=== PATIENT | male | born 1950 | race Caucasian/White ===

== ENCOUNTER 2017-01-07 01:48 | Observation (INO) | payer MEDICARE, OTHER ==
[~2017-01-07] VITALS: Ht 180.3 cm; Wt 124.5 kg
[2017-01-07] VITALS (16 sets, daily range): BP systolic 93–166; BP diastolic 58–93; PULSE 90–112; RESP 16–24; TEMP 99.1–100.3; O2SAT 93–100
[2017-01-07] MEDS ORDERED: SODIUM CHLORID 0.9% 500 ML INJ 500 ML IV ONE (02:15)
[2017-01-07] MEDS ORDERED: ASPIRIN 81 MG CHEW TAB PO ONE (02:15)
[2017-01-07] MEDS ORDERED: SODIUM CHLORIDE 0.9% FLUSH 5 ML FLUSH IVF PRN ×2 (02:15→04:45)
[2017-01-07] MEDS: NITROGLYCERIN 0.4 MG SL 25 TABS/BTL SL SCH ×3 (02:20→02:34)
[2017-01-07] MEDS ORDERED: VITA500T4 PO (02:23)
[2017-01-07] MEDS ORDERED: AMLO5TAB2 PO (02:23)
[2017-01-07] MEDS ORDERED: SERT-129 PO (02:23)
[2017-01-07] MEDS ORDERED: METO-426 PO (02:23)
[2017-01-07] MEDS ORDERED: ASPI81CH CHEW (02:23)
[2017-01-07] MEDS ORDERED: ATOR40TA16 PO (02:23)
[2017-01-07 02:33] LABS: AUTOMATED NEUTROPHIL # 3.6 TH/MM3 (1.8-7.7); BASOPHIL # 0.1 TH/MM3 (0-0.2); BASOPHIL % 1.6 % (0.0-2.0); EOSINOPHIL # 0.2 TH/MM3 (0-0.4); HEMATOCRIT 42.7 % (39.0-51.0); HEMO FLAGS DIFF FINAL; LYMPHOCYTE # 0.9 TH/MM3 (1.0-4.8); MEAN CELL VOLUME 87.7 FL (80.0-100.0); MEAN CORPUSCULAR HEMOGLOBIN 29.4 PG (27.0-34.0); MEAN CORPUSCULAR HGB CONC 33.5 % (32.0-36.0); MONO % 7.5 % (0.0-8.0); NEUT % 70.9 % (16.0-70.0); PLATELET COUNT 116 TH/MM3 (150-450); RED BLOOD COUNT 4.87 MIL/MM3 (4.50-5.90); RED CELL DISTRIBUTION WIDTH 12.6 % (11.6-17.2); WHITE BLOOD COUNT 5.2 TH/MM3 (4.0-11.0)
[2017-01-07 02:43] LABS: CHLORIDE 104 MEQ/L (98-107); POTASSIUM 3.6 MEQ/L (3.5-5.1); SODIUM (NA) 142 MEQ/L (136-145)
[2017-01-07 02:47] LABS: ANION GAP 7 MEQ/L (5-15); BLOOD UREA NITROGEN 16 MG/DL (7-18)
[2017-01-07 02:50] LABS: ALT (GPT) 30 U/L (12-78); AST (GOT) 16 U/L (15-37); GLOMERULAR FILTRATION RATE 67 ML/MIN (>89)
[2017-01-07 02:53] LABS: ALKALINE PHOSPHATASE 85 U/L (45-117)
--- NOTE | 2017-01-07 02:58 | RADHPO ---
EXAM DATE/TIME: 01/07/2017 02:32 [facility] COMPARISON: No previous studies available for comparison. INDICATIONS : Chest pain for 2 days MEDICAL HISTORY : None. SURGICAL HISTORY : None. ENCOUNTER: Initial ACUITY: 1 day PAIN SCORE: 7/10 LOCATION: Center of chest FINDINGS: Single AP view of the chest. The lungs are clear. Cardiomediastinal silhouette within normal limits. No evidence of pleural effusion or pneumothorax. CONCLUSION: No acute cardiopulmonary disease identified. Ankit Feliciano MD on January 07, 2017 at 2:55 Board Certified Radiologist. This report was verified electronically.
[2017-01-07 03:04] LABS: CREATINE KINASE 41 U/L (39-308)
--- NOTE | 2017-01-07 03:24 | PD ---
HPI Chief Complaint: Chest Pain Time Seen by Provider: 02:07 Travel History International Travel<30 days: No Contact w/Intl Traveler<30days: No Traveled to known affect area: No History of Present Illness HPI Patient is a 66-year-old male who presents to emergency room for evaluation of chest pain. Patient reports that he has history of hypertension and hyperlipidemia and history of V. tach in the past. Reports that since yesterday at 9 AM, he began to have chest pain. Patient reports that he feels like there is a bubble sensation to his left chest. Reports that chest pain feels like a "pressure to the chest" and reports that he does have associated shortness of breath with his chest pain. Patient reports that taking deep breath exacerbates his chest pain. Reports no nausea or vomiting with symptoms. Denies diaphoresis with symptoms. Reports that he had similar symptoms in the past when he was diagnosed with V. tach many years ago. Patient reports that he has not seen a compensator worker in the past 10 years. Patient reports that he does have a compensator worker in [place], he does live in [place] during the wintertime and goes back to [place] during the summertime to live. [facility] Past Medical History Atrial Fibrillation: Yes Anxiety: Yes Heart Rhythm Problems: Yes High Cholesterol: Yes Chest Pain: Yes Hypertension: Yes Kidney Stones: Yes ?: Not Social History Alcohol Use: Yes Tobacco Use: No Substance Use: No Allergies-Medications (Allergen,Severity, Reaction): Coded Allergies: No Known Allergies (Unverified , 01/07/17) Reported Meds & Prescriptions Reported Meds & Active Scripts Active Reported Vitamin B-12 (Cyanocobalamin) 500 Mcg Tab 500 Mcg PO DAILY Aspirin 81 Mg Chew 81 Mg CHEW DAILY Metoprolol Tartrate 75 Mg Tab 75 Mg PO BID Amlodipine (Amlodipine Besylate) 5 Mg Tab 5 Mg PO DAILY Atorvastatin (Atorvastatin Calcium) 40 Mg Tab 40 Mg PO HS Sertraline (Sertraline HCl) 100 Mg Tab 100 Mg PO DAILY Review of Systems General / Constitutional: No: Fever Eyes: No: Visual changes HENT: No: Headaches Cardiovascular: Positive: Chest Pain or Discomfort, Palpitations, Irregular Rhythm Respiratory: No: Shortness of Breath Gastrointestinal: No: Abdominal Pain Genitourinary: No: Dysuria Musculoskeletal: No: Pain Skin: No Rash Neurologic: No: Weakness Psychiatric: No: Depression Endocrine: No: Polydipsia Hematologic/Lymphatic: No: Easy Bruising Physical Exam Narrative GENERAL: Mild distress SKIN: Warm and dry. HEAD: Atraumatic. Normocephalic. EYES: Pupils equal and round. No scleral icterus. No injection or drainage. ENT: No nasal bleeding or discharge. Mucous membranes pink and moist. NECK: Trachea midline. No JVD. CARDIOVASCULAR: Irregular iegular rate and rhythm. No murmur appreciated. RESPIRATORY: No accessory muscle use. Clear to auscultation. Breath sounds equal bilaterally. GASTROINTESTINAL: Abdomen soft, non-tender, nondistended. Hepatic and splenic margins not palpable. MUSCULOSKELETAL: No obvious deformities. No clubbing. No cyanosis. No edema. NEUROLOGICAL: Awake and alert. No obvious cranial nerve deficits. Motor grossly within normal limits. Normal speech. PSYCHIATRIC: Appropriate mood and affect; insight and judgment normal. Data Data Last Documented VS Vital Signs Date Time Temp Pulse Resp B/P Pulse Ox O2 Delivery O2 Flow Rate FiO2 01/07/17 03:15 97 16 163/77 99 Room Air Orders B-Type Natriuretic Peptide (01/07/17 02:14) Ckmb (Isoenzyme) Profile (01/07/17 02:14) Complete Blood Count With Diff (01/07/17 02:14) Comprehensive Metabolic Panel (01/07/17 02:14) D-Dimer (01/07/17 02:14) Prothrombin Time / Inr (Pt) (01/07/17 02:14) Act Partial Throm Time (Ptt) (01/07/17 02:14) Troponin I (01/07/17 02:14) Lipase (01/07/17 02:14) Chest, Single Ap (01/07/17 02:14) Ecg Monitoring (01/07/17 02:14) Iv Access Insert/Monitor (01/07/17 02:14) Oximetry (01/07/17 02:14) Aspirin Chew (Aspirin Chew) (01/07/17 02:15) Sodium Chloride 0.9% Flush (Ns Flush) (01/07/17 02:15) Nitroglycerin Sl (Nitrostat Sl) (01/07/17 02:15) Sodium Chlorid 0.9% 500 Ml Inj (Ns 500 M (01/07/17 02:15) Labs Laboratory Tests Test 01/07/17 01/07/17 02:20 03:10 White Blood Count 5.2 TH/MM3 Red Blood Count 4.87 MIL/MM3 Hemoglobin 14.3 GM/DL Hematocrit 42.7 % Mean Corpuscular Volume 87.7 FL Mean Corpuscular Hemoglobin 29.4 PG Mean Corpuscular Hemoglobin 33.5 % Concent Red Cell Distribution Width 12.6 % Platelet Count 116 TH/MM3 Mean Platelet Volume 8.5 FL Neutrophils (%) (Auto) 70.9 % Lymphocytes (%) (Auto) 17.0 % Monocytes (%) (Auto) 7.5 % Eosinophils (%) (Auto) 3.0 % Basophils (%) (Auto) 1.6 % Neutrophils # (Auto) 3.6 TH/MM3 Lymphocytes # (Auto) 0.9 TH/MM3 Monocytes # (Auto) 0.4 TH/MM3 Eosinophils # (Auto) 0.2 TH/MM3 Basophils # (Auto) 0.1 TH/MM3 CBC Comment DIFF FINAL Differential Comment Sodium Level 142 MEQ/L Potassium Level 3.6 MEQ/L Chloride Level 104 MEQ/L Carbon Dioxide Level 31.0 MEQ/L Anion Gap 7 MEQ/L Blood Urea Nitrogen 16 MG/DL Creatinine 1.10 MG/DL Estimat Glomerular Filtration 67 ML/MIN Rate Random Glucose 138 MG/DL Calcium Level 8.4 MG/DL Total Bilirubin 2.0 MG/DL Aspartate Amino Transf 16 U/L (AST/SGOT) Alanine Aminotransferase 30 U/L (ALT/SGPT) Alkaline Phosphatase 85 U/L Total Creatine Kinase 41 U/L Troponin I LESS THAN 0.02 NG/ML B-Type Natriuretic Peptide 191 PG/ML Total Protein 7.3 GM/DL Albumin 3.9 GM/DL Lipase 97 U/L Prothrombin Time 11.8 SEC Prothromb Time International 1.1 RATIO Ratio Activated Partial 25.9 SEC Thromboplast Time D-Dimer Quantitative (PE/DVT) 0.41 MG/L [facility] Medical Decision Making Medical Screen Exam Complete: Yes Emergency Medical Condition: Yes Interpretation(s) EKG at 0156: A. fib with RVR at 105 beats minute Vital Signs Date Time Temp Pulse Resp B/P Pulse Ox O2 Delivery O2 Flow Rate FiO2 01/07/17 03:15 97 16 163/77 99 Room Air 01/07/17 02:55 139/65 01/07/17 02:50 116/64 01/07/17 02:45 93/58 01/07/17 02:40 111/61 01/07/17 02:35 160/83 01/07/17 02:30 149/92 01/07/17 02:00 16 99 Room Air 01/07/17 01:50 112 16 142/83 100 Differential Diagnosis New onset A. fib, arrhythmia, ACS, electrolyte abnormality Narrative Course Patient is a 66-year-old male who presents to emergency room with complaints of chest pain since yesterday at 9 AM. Patient reports that chest pain is located his left breast, reports that pain feels a Pressure to his chest with associated shortness of breath. Patient reports that he has had history of hypertension or hyperlipidemia, he last saw a compensator worker about 10 years ago in [place]. Patient reports that chest pain has been continuous since yesterday, patient reports that he is here for evaluation as symptoms are not getting any better. It appears the patient's rhythm is A. fib, patient reports that he thinks that he was told that he had irregular irregular heart rate in the past. Patient was placed on a conservator artifacts upon arrival to the emergency room, labs as well as cardiac enzymes and x-ray ordered. Patient was given 2 SL nitros which completely resolved his chest pain. Diagnosis Primary Impression: Chest pain Qualified Code: R07.9 - Chest pain, unspecified type Additional Impression: Afib Qualified Code: I48.91 - Atrial fibrillation, unspecified type Admitting Information Admitting Physician Requests: Mehnaz Bhardwaj DO Jan 07, 2017 03:24
[2017-01-07 03:40] LABS: APTT (PATIENT) 25.9 SEC (24.3-30.1); INTERNATIONAL NORMALIZED RATIO 1.1 RATIO; PROTHROMBIN TIME - PATIENT 11.8 SEC (9.8-11.6)
[2017-01-07] MEDS ORDERED: ENOXAPARIN SODIUM 150 MG/ML SYRINGE SQ ONE (04:45)
[2017-01-07 06:24] LABS: CREATINE KINASE 37 U/L (39-308)
[2017-01-07] MEDS ORDERED: MORPHINE SULFATE 4 MG/ML INJ IV PRN (07:30)
[2017-01-07] MEDS ORDERED: NITROGLYCERIN 0.4 MG SL 25 TABS/BTL SL PRN (07:30)
[2017-01-07] MEDS ORDERED: ACETAMINOPHEN 325 MG TAB PO PRN (07:30)
[2017-01-07] MEDS ORDERED: ONDANSETRON HCL 4 MG/2 ML VIAL IV PRN (07:30)
[2017-01-07] MEDS: NITROGLYCERIN 2% OINT 1 GM PACKET TOP SCH ×2 (08:22→12:00)
[2017-01-07] MEDS ORDERED: IOHEXOL 350 MG/ML 10 ML VIAL (for RAD DIAG) IV ONE ×2 (08:59→10:45)
[2017-01-07] MEDS ORDERED: amLODIPine BESYLATE 5 MG TAB PO SCH (09:00)
[2017-01-07] MEDS ORDERED: ASPIRIN 81 MG CHEW TAB CHEW SCH (09:00)
[2017-01-07] MEDS ORDERED: SERTRALINE HCL 100 MG TAB PO SCH (09:00)
[2017-01-07] MEDS ORDERED: METOPROLOL TARTRATE 25 MG TAB PO SCH (09:00)
[2017-01-07] MEDS ORDERED: SODIUM CHLORIDE 0.9% FLUSH 5 ML FLUSH IVF SCH (09:00)
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
--- NOTE | 2017-01-07 09:11 | RADHPO ---
EXAM DATE/TIME: 01/07/2017 08:46 [facility] COMPARISON: No previous studies available for comparison. INDICATIONS : Left chest pain and short of breath x 2 days. Cough x 2 weeks. IV CONTRAST: 75 cc Omnipaque 350 (iohexol) IV RADIATION DOSE: 21.087 CTDIvol (mGy) MEDICAL HISTORY : Hypertension. Renal calculi. SURGICAL HISTORY : None. ENCOUNTER: Initial ACUITY: 2 days PAIN SCALE: 4/10 LOCATION: Left chest TECHNIQUE: Volumetric scanning of the chest was performed using a pulmonary embolism protocol MIP images were re constructed. Using automated exposure control and adjustment of the mA and/or kV according to patien t size, radiation dose was kept as low as reasonably achievable to obtain optimal diagnostic quality images. FINDINGS: PULMONARY ARTERIES: No filling defects are seen in the pulmonary arteries through the segmental level. LUNGS: There is mild consolidation or atelectasis of the posterior lower lobes bilaterally. PLEURAE: There is no pleural thickening or pleural effusion. MEDIASTINUM: There is a moderate pericardial effusion. The pericardial effusion extends superiorly around the asce nding aorta. The pericardial effusion measures up to 1.7 cm seen over the right side the heart. Coron monica artery calcification are present. There is a mildly prominent right paratracheal lymph node measu ring 1.7 x 1.2 cm. This is nonspecific. MUSCULOSKELETAL: Within normal limits for patient age. MISCELLANEOUS: The visualized upper abdominal organs demonstrate no acute abnormality. CONCLUSION: 1. No pulmonary embolus. 2. Moderate pericardial effusion. 3. Mild atelectasis or consolidation at the posterior lung bases. Arnie Parnell MD on January 07, 2017 at 9:06 Board Certified Radiologist. This report was verified electronically.
[2017-01-07 10:08] LABS: CREATINE KINASE 30 U/L (39-308)
[2017-01-07 10:36] LABS: HDL CHOLESTEROL 41.9 MG/DL (40.0-60.0)
--- NOTE | 2017-01-07 11:39 | RADRPT ---
EXAM DATE/TIME: 01/07/2017 10:23 [facility] COMPARISON: No previous studies available for comparison. INDICATIONS: CT pulmonary angiogram showing pericardial effusion and fluid extending into the superior pericardial recess IV CONTRAST: 75 cc Omnipaque 350 (iohexol) IV RADIATION DOSE: 25.80 CTDIvol (mGy) MEDICAL HISTORY: Hypertension. Renal calculi. SURGICAL HISTORY: None. ENCOUNTER: Initial ACUITY: 2 days PAIN SCALE: 6/10 LOCATION: Chest TECHNIQUE: Volumetric scanning was performed using a multi-row detector CT scanner. The data was post processed with a variety of visualization algorithms including full volume maximum intensity projection, multi -planar sliding thin slab reformation, curved planar reformation, and surface rendering techniques. Using automated exposure control and adjustment of the mA and/or kV according to patient size, radiat ion dose was kept as low as reasonably achievable to obtain optimal diagnostic quality images. FINDINGS: Minimal atherosclerotic calcific vascular disease is present. There is mild dilatation of the ascend ing aorta to 3.4 cm. The descending aorta measures 2.7 cm. There is a large pericardial effusion th at measures 1.9 cm that extends up through the superior pericardial recess around the ascending aorta to terminate at the level of the innominate artery. There is no dissection. This is very suspiciou s for intradural hematoma from a hemorrhage into and through the vasa vasorum. There is minimal coronary artery calcifications in the LAD and proximal circumflex. There are no cor onary artery calcifications in the large right coronary artery. Minimal bibasilar parenchymal changes are noted. Below the diaphragm moderate atherosclerotic disease is present without aneurysmal dilatation. Esther c, superior mesenteric artery and both renal arteries are widely patent. Common iliac's are widely patent. There is no evidence for pancreatitis. There is no evidence for free air. CONCLUSION: 1... 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 2. Findings have been discussed with both Dr. Bloom and Dr. Serna. Patient is currently being tria ged to the MRI scanner for a rapid cardiac MRI. Pérez Vann MD FACR on January 07, 2017 at 11:10 Board Certified Radiologist. This report was verified electronically.
[2017-01-07] MEDS ORDERED: ESMOLOL DRIP INJ PREMIX 250 ML IV SCH (12:00)
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
--- NOTE | 2017-01-07 12:35 | MB ---
cc: ELIOT DUQUE DATE OF CONSULTATION 01/07/2017 INDICATION Chest pain. HISTORY OF PRESENT ILLNESS This 66-year-old gentleman has a history hypertension, hyperlipidemia who presents to the hospital in [place] with acute onset of chest pain. Apparently over the course of the past few weeks to months he has had some upper respiratory symptoms consisting of cough. He has been to the [facility] on a few occasions with antibiotic and steroid treatments. Apparently yesterday he had development of acute onset of chest pain 08/03 around 9 p.m. or so. He came into the emergency department at [place] and was found to be in atrial fibrillation. He was given nitroglycerin in the emergency department without much improvement in terms of his symptoms. He was also noted to be in new onset atrial fibrillation which he had not been in the past. He was admitted and given Lopressor in addition to Lovenox. I was called this morning by the physician client services assistant for cardiac consultation and ongoing chest pain. Over the phone we discussed the case and given his acute nature without significant electrocardiographic changes, I was concern for some intrathoracic process. We initially performed a STAT pulmonary angiogram due to his shortness of breath and pleuritic type discomfort. That did not show pulmonary embolism but did show some periaortic fluid and pericardial infusion. He was in the process of already being emergently transferred to [facility] for further workup. Upon immediate arrival to [place] we had already made arrangements with Dr. Eliot Vann or Radiology, in addition Dr. Naheed Bloom of Cardiothoracic Surgery to meet him. Upon immediate arrival, we transferred him down to Radiology for a CTA scan of the aorta for concern of aortic dissection. That scan showed suspicious periaortic fluid for intramural hematoma which was confirmed by MRI/MRA of the chest. The patient's chest pain is improved but does look like the pericardial effusion is slightly larger in the interval from the CTA for pulmonary angiogram and the CTA for aortic dissection. PAST MEDICAL HISTORY HTN SOCIAL HISTORY denies tobacco, ETOH, or drug use FAMILY HISTORY Denies any FH of early coronary disease or sudden cardiac ROS: negative unless noted in history of present illness PHYSICAL EXAM: HR 104 SBP 140/82 mmHg GEN: alert and orientated. moderate distress HEENT: PERRLA. EOMI. no JVD. no carotid bruits CV: IR IR no murmur RESP: lungs clear ABD: NT ND +BS EXT: no clubbing cyanosis or edema NEURO: cranial nerves intact. motor and sensory intact. ASSESSMENT: 1. ACUTE ASCENDING AORTIC INTRAMURAL HEMATOMA 2. PERICARDIAL EFFUSION 3. ATRIAL FIBRILLATION 4. HTN PLAN: At this point he has been transferred to the CV-ICU from MRI and arrangements are being made for emergent transfer to the [facility] for surgery. Helicopter transport is being arranged. We will control heart rate and blood pressure with esmolol gtt MD JACQUELIN Berg/PAN /11:57 AM /12:26 PM MTDD
[2017-01-07] MEDS ORDERED: GADODIAMIDE PF 287 MG/ML 10 ML VIAL (for RAD MRI) IV ONE (12:44)
--- NOTE | 2017-01-07 13:45 | EKG ---
Date Performed: 01/07/2017 Time Performed: 09:11:12 PTAGE: 66 years EKG: Atrial fibrillation with rapid ventricular response. Poor R wave progression - probable nor mal variant Septal T wave changes are nonspecific Abnormal ECG NO PREVIOUS TRACING DOCTOR: Sebas Miller Interpretating Date/Time 01/07/2017 13:43:23
--- NOTE | 2017-01-07 13:49 | EKG ---
Date Performed: 01/07/2017 Time Performed: 05:33:26 PTAGE: 66 years EKG: Atrial fibrillation with rapid ventricular response Rightward axis Right ventricular hypert rophy Abnormal ECG PREVIOUS TRACING : 01/07/2017 01.56 DOCTOR: Sebas Miller Interpretating Date/Time 01/07/2017 13:46:45
--- NOTE | 2017-01-07 13:51 | EKG ---
Date Performed: 01/07/2017 Time Performed: 01:56:06 PTAGE: 66 years EKG: Atrial fibrillation with rapid ventricular response. Rightward axis Right ventricular hyper trophy Abnormal ECG NO PREVIOUS TRACING DOCTOR: Sebas Miller Interpretating Date/Time 01/07/2017 13:48:04
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
[2017-01-07] MEDS ORDERED: ATORVASTATIN 40 MG TAB PO SCH (21:00)
--- NOTE | 2017-02-11 15:21 | HHI.PR ---
Addendum to Inpatient Note Additional Information pt was seen by [facility] placed on esmolol gtt , trandfered urgently to [facility] for urgent surgery . disposition:transfer patient to [facility] Condition on Transfer: critical Diet NPO Ad Christine activity bed rest Rx written:see med rec Follow-up with [facility] cardiovascular team upon arrival Mali Livingston MD Feb 11, 2017 15:21
== END 2017-01-07 12:45 | disposition short-term general hospital (02) ==
LOC: PHED 01:48 → PHEDA 04:31 → PH3A 06:38 → HCVR 10:35
PROVIDERS: ADMIT Hospitalist; ATTEND Hospitalist
DX: I71.01 Dissection of thoracic aorta (principal); I31.3 Pericardial effusion (noninflammatory); I15.9 Secondary hypertension, unspecified; E78.5 Hyperlipidemia, unspecified; I48.91 Unspecified atrial fibrillation; E78.00 Pure hypercholesterolemia, unspecified; F41.9 Anxiety disorder, unspecified; Z79.82 Long term (current) use of aspirin; Z86.79 Personal history of other diseases of the circulatory system; Z87.891 Personal history of nicotine dependence
CPT/HCPCS: 71010; 71275; 74174; 80053; 80061; 82550; 83690; 83880; 84443; 84484; 85025; 85379; 85610; 85730; 93005; 96360; 99285; A9579; C8909; G0378; J1650; J2270; J7040; Q9967; 71555